=== PATIENT | female | born 1980 | race African-American/Black ===

== ENCOUNTER 2024-10-14 15:03 | Emergency (ER) | payer OTHER ==
[~2024-10-14] VITALS: Ht 160 cm; Wt 59.4 kg
[2024-10-14 15:12] VITALS: PULSE 92; RESP 18; TEMP 98.4
[2024-10-14] MEDS ORDERED: TAMIFLU75 MG PO (15:55)
[2024-10-14] MEDS ORDERED: ONDANSETRON ODT4 MG PO (15:55)
[2024-10-14 16:00] VITALS: BP 150/89; PULSE 92; RESP 18; O2SAT 98
== END 2024-10-14 16:00 | disposition home or self-care (01) ==
LOC: FSED 15:14
DX: R05.9 Cough, unspecified (principal); B34.9 Viral infection, unspecified; Z11.52 Encounter for screening for COVID-19
CPT/HCPCS: 0223U; 83518; 87400; 99284

== ENCOUNTER 2024-10-29 15:41 | Emergency (ER) | payer OTHER ==
[~2024-10-29] VITALS: Ht 160 cm; Wt 58.7 kg
[~2024-10-29 15:41] MED LIST: ONDANSETRON ODT4 MG PO; TAMIFLU75 MG PO
[2024-10-29] MEDS ORDERED: THERAFLU SVR C1 EACH PO (16:11)
[2024-10-29] MEDS ORDERED: IBUPROFEN600 MG PO (16:11)
[2024-10-29] MEDS ORDERED: THERAFLU NIGHT1 EAC5 PO (16:11)
[2024-10-29 16:20] VITALS: PULSE 79; RESP 14; TEMP 98; O2SAT 99
[2024-10-29] MEDS ORDERED: CEFDINIR300 MG PO (16:26)
[2024-10-29] MEDS ORDERED: PLAN B ONE-STE1.5 MG PO (16:26)
== END 2024-10-29 16:32 | disposition home or self-care (01) ==
LOC: FSED 15:47
DX: R05.9 Cough, unspecified (principal); J02.9 Acute pharyngitis, unspecified; R53.81 Other malaise; Z11.52 Encounter for screening for COVID-19
CPT/HCPCS: 0223U; 81003; 81025; 83518; 87400; 99283

== ENCOUNTER 2024-11-07 00:20 | Emergency (ER) | payer OTHER ==
[~2024-11-07] VITALS: Ht 162.6 cm; Wt 57.2 kg
[~2024-11-07 00:20] MED LIST changes: +CEFDINIR300 MG PO; +IBUPROFEN600 MG PO; +PLAN B ONE-STE1.5 MG PO; +THERAFLU NIGHT1 EAC5 PO; +THERAFLU SVR C1 EACH PO
[2024-11-07 00:34] VITALS: PULSE 98; RESP 18; TEMP 97.7
[2024-11-07] MEDS: DIPHTH,PERTUSS(ACELL),TET VAC 0.5 ML SYRINGE IM ONE (01:03)
[2024-11-07 01:15] VITALS: BP 164/94; PULSE 98; RESP 18; TEMP 97.7; O2SAT 97
== END 2024-11-07 01:15 | disposition home or self-care (01) ==
LOC: FSED 00:39
DX: T22.211A Burn of second degree of right forearm, initial encounter (principal); T22.112A Burn of first degree of left forearm, initial encounter; V47.5XXA Car driver injured in collision with fixed or stationary object in traffic accident, initial encounter; Y92.488 Other paved roadways as the place of occurrence of the external cause
CPT/HCPCS: 90471; 99282

== ENCOUNTER 2025-03-09 11:04 | Emergency (ER) | payer SELFPAY ==
[~2025-03-09] VITALS: Ht 160 cm; Wt 57.2 kg
[2025-03-09 11:08] VITALS: PULSE 88; RESP 20; TEMP 98.3; O2SAT 98
[2025-03-09] MEDS ORDERED: DOXYCYCLINE HY100 MG PO (11:29)
[2025-03-09] MEDS ORDERED: DIFLUCAN100 MG PO (11:29)
[2025-03-09] MEDS ORDERED: AZITHROMYCIN 250 MG TAB PO ONE (11:30)
[2025-03-09] MEDS ORDERED: LIDOCAINE HCL 10 MG/ML VIAL INJ ONE (11:37)
[2025-03-09] MEDS: DOXYCYCLINE HYCLATE TABLET 100 MG TAB PO ONE (11:37)
[2025-03-09] MEDS: CEFTRIAXONE 500 MG VIAL IM ONE (11:37)
[2025-03-09] MEDS ORDERED: METRONIDAZOLE500 MG PO (11:39)
[2025-03-09] MEDS ORDERED: CEFPODOXIME PR200 MG PO (11:39)
== END 2025-03-09 11:48 | disposition home or self-care (01) ==
LOC: FSED 11:12
DX: R30.0 Dysuria (principal); N39.0 Urinary tract infection, site not specified
CPT/HCPCS: 81003; 81025; 99284; J0696